=== PATIENT | female | born 2000 | race Native Hawaiian/Other Pacific Islander ===

== ENCOUNTER 2025-05-18 17:58 | Emergency (ER) | payer OTHER ==
[~2025-05-18] VITALS: Ht 172.7 cm; Wt 88.4 kg
[2025-05-18 19:34] VITALS: BP 114/61; TEMP 98.2; O2SAT 96
[2025-05-18] MEDS ORDERED: METH-1165 PO (20:03)
[2025-05-18] MEDS ORDERED: NAPR-837 PO (20:03)
== END 2025-05-18 20:11 | disposition home or self-care (01) ==
LOC: M ED 17:58
DX: S93.401A Sprain of unspecified ligament of right ankle, initial encounter (principal); S93.601A Unspecified sprain of right foot, initial encounter; M62.838 Other muscle spasm; X50.1XXA Overexertion from prolonged static or awkward postures, initial encounter; Y92.9 Unspecified place or not applicable; Y93.9 Activity, unspecified; Y99.1 Military activity

== ENCOUNTER → 2025-05-18 | Outpatient (CLI) | payer OTHER ==
[~2025-05-18] MED LIST: METH-1165 PO; NAPR-837 PO
== END ==
LOC: M RAD 17:38
PROVIDERS: ATTEND Physician Assistant
DX: M25.571 Pain in right ankle and joints of right foot (principal)